=== PATIENT | female | born 2005 | race Caucasian/White ===

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

== ENCOUNTER → 2025-01-13 | Outpatient (REF) | payer BC ==
[~2025-01-13] MED LIST: HYDR-3363 PO; LEXA1TAB PO; TRAZ-252 PO; TRI-TAB16 PO
== END ==
LOC: M LAB REF 16:59
PROVIDERS: ATTEND Physician Assistant
DX: B34.9 Viral infection, unspecified (principal)